=== PATIENT | male | born 1960 | race Hispanic/Latino ===

== ENCOUNTER 2020-02-23 | Emergency (ER) | payer SELFPAY ==
[2020-02-23 20:30] LABS: HEMATOCRIT 41.3 % (39.0-50.0); HEMOGLOBIN 13.9 g/dl (14.0-18.0); IMMATURE GRANULOCYTES 1.6 % (0.0-5.0); MEAN CELL VOLUME 79.3 fL CALC (80.0-100.0); MEAN CORPUSCULAR HGB 26.7 pG CALC (26.0-32.0); MEAN CORPUSCULAR HGB CONC 33.7 g/dL CAL (32.0-36.0); NEUT# 7.02 thou/uL (1.82-7.42); RED BLOOD COUNT 5.21 mill/uL (4.70-6.10); RED CELL DISTRI WIDTH 14.1 % (11.5-15.5)
[2020-02-23 20:49] LABS: ALBUMIN 3.8 g/dL (3.2-5.0); BILIRUBIN, TOTAL 1.4 mg/dL (0.0-1.4); POTASSIUM 3.1 mmol/l (3.5-5.1); TOTAL PROTEIN 7.8 g/dL (6.3-8.2)
[2020-02-23 20:57] LABS: CREATININE 8.7 mg/dL (0.7-1.3)
[2020-02-23 21:13] LABS: CPK 200 u/l (52-200)
[2020-02-23 21:33] LABS: MYOGLOBIN 509 ng/mL (0 - 121)
[2020-02-23 21:58] LABS: URINE BILIRUBIN - DIPSTICK NEGATIVE (NEGATIVE); URINE BLOOD DIPSTICK LARGE (NEGATIVE); URINE COLOR BROWN; URINE GLUCOSE - DIPSTICK NEGATIVE (NEGATIVE); URINE KETONE NEGATIVE (NEGATIVE); URINE LEUK ESTERASE TRACE (NEGATIVE); URINE NITRITE - DIPSTICK NEGATIVE (Negative); URINE PH 5.5 (4.5-8.0); URINE PROTEIN - DIPSTICK 30 mg/dL (NEG-TRACE); URINE SPECIFIC GRAVITY >=1.030; URINE UROBILINOGEN - DIPSTICK 0.2 E.U./dL (0.2)
[2020-02-23 22:06] LABS: URINE SQUAMOUS EPITHELIAL CELL FEW EPI/hpf (0-FEW)
[2020-02-23 22:07] LABS: URINE BACTERIA MANY hpf
--- NOTE | 2020-02-25 10:26 | NUR ---
FAXED URINE CX RESULTS TO [facility] FAX# [phone]
== END 2020-02-23 22:27 | disposition short-term general hospital (02) | DRG 394 ==
PROVIDERS: Family Medicine
PROC: 0T9B70Z Drainage of Bladder with Drainage Device, Via Natural or Artificial Opening (ICD-10-PCS; principal; 2020-02-23)
DX: T18.5XXA Foreign body in anus and rectum, initial encounter (principal); N17.9 Acute kidney failure, unspecified; R10.0 Acute abdomen; X58.XXXA Exposure to other specified factors, initial encounter; R82.71 Bacteriuria

== ENCOUNTER 2020-03-23 20:54 | Inpatient (IN) | payer SELFPAY ==
[~2020-03-23] VITALS: Ht 162.6 cm; Wt 54.0 kg
[2020-03-23 21:30] LABS: IMMATURE GRANULOCYTES 0.4 % (0.0-5.0); MEAN CORPUSCULAR HGB 27.6 pG CALC (26.0-32.0); MEAN CORPUSCULAR HGB CONC 31.8 g/dL CAL (32.0-36.0); NEUT# 6.9 thou/uL (1.82-7.42); RED BLOOD COUNT 2.72 mill/uL (4.70-6.10); RED CELL DISTRI WIDTH 15.3 % (11.5-15.5)
[2020-03-23 21:37] LABS: HEMATOCRIT 23.6 % (39.0-50.0); HEMOGLOBIN 7.5 g/dl (14.0-18.0); MEAN CELL VOLUME 86.8 fL CALC (80.0-100.0)
[2020-03-23 21:44] LABS: AMYLASE 124 u/l (30-110); BUN 30 mg/dL (9-20); CHLORIDE 97 mmol/l (95-108); LIPASE 224 u/l (23-300); SGOT/AST 24 u/l (17-59); SODIUM 133 mmol/l (137-146); TOTAL PROTEIN 7.4 g/dL (6.3-8.2)
[2020-03-23 21:47] LABS: ALBUMIN 2.9 g/dL (3.2-5.0); ALKALINE PHOSPHATASE 113 u/l (38-126); ANION GAP 10 (6-22 (CALC)); BILIRUBIN, TOTAL 0.5 mg/dL (0.0-1.4); BUN/CREATININE RATIO 30 (12-20 (CALC)); CARBON DIOXIDE 30 mmol/l (22-30); GFR > 60 ML/MIN (>=60 (CALC)); GFR FOR AFR.AMER. > 60 ML/MIN (>=60 (CALC)); POTASSIUM 4.1 mmol/l (3.5-5.1)
[2020-03-23] MEDS ORDERED: DOXAZOSIN1 MG PO (21:50)
[2020-03-23] MEDS ORDERED: LOPRESSOR25 M1 PO (21:51)
[2020-03-23] MEDS ORDERED: FINASTERIDE5 MG PO (21:51)
[2020-03-23] MEDS ORDERED: TAMSULOSIN HCL0.4 MG PO (21:52)
[2020-03-23 22:39] LABS: URINE BILIRUBIN - DIPSTICK NEGATIVE (NEGATIVE); URINE BLOOD DIPSTICK MODERATE (NEGATIVE); URINE COLOR YELLOW; URINE GLUCOSE - DIPSTICK NEGATIVE (NEGATIVE); URINE KETONE NEGATIVE (NEGATIVE); URINE NITRITE - DIPSTICK NEGATIVE (Negative); URINE PH 5.5 (4.5-8.0); URINE PROTEIN - DIPSTICK 30 mg/dL (NEG-TRACE); URINE SPECIFIC GRAVITY 1.015; URINE UROBILINOGEN - DIPSTICK 0.2 E.U./dL (0.2)
[2020-03-23 22:52] LABS: URINE LEUK ESTERASE LARGE (NEGATIVE)
[2020-03-23 22:53] LABS: URINE BACTERIA MODERATE hpf; URINE RBC TNTC RBC/hpf (0-5); URINE SQUAMOUS EPITHELIAL CELL FEW EPI/hpf (0-FEW); URINE WBC TNTC WBC/hpf (0-5)
[2020-03-23] MEDS ORDERED: BACTRIM DS1 TAB PO (23:15)
[2020-03-24 10:40] VITALS: BP 127/65
[2020-03-24 15:18] VITALS: BP 130/80
[2020-03-24 19:29] VITALS: BP 119/69
[2020-03-25 03:55] VITALS: BP 122/75
[2020-03-25 06:12] LABS: HEMATOCRIT 24.7 % (39.0-50.0); HEMOGLOBIN 7.7 g/dl (14.0-18.0); MEAN CELL VOLUME 87.3 fL CALC (80.0-100.0); MEAN CORPUSCULAR HGB 27.2 pG CALC (26.0-32.0); MEAN CORPUSCULAR HGB CONC 31.2 g/dL CAL (32.0-36.0); RED BLOOD COUNT 2.83 mill/uL (4.70-6.10); RED CELL DISTRI WIDTH 14.8 % (11.5-15.5)
[2020-03-25 06:35] LABS: ANION GAP 7 (6-22 (CALC)); BUN 22 mg/dL (9-20); BUN/CREATININE RATIO 21 (12-20 (CALC)); CARBON DIOXIDE 29 mmol/l (22-30); CHLORIDE 103 mmol/l (95-108); GFR > 60 ML/MIN (>=60 (CALC)); GFR FOR AFR.AMER. > 60 ML/MIN (>=60 (CALC)); SODIUM 135 mmol/l (137-146)
[2020-03-25 07:56] VITALS: BP 128/73
[2020-03-25 15:25] VITALS: BP 123/80
[2020-03-25 19:25] VITALS: BP 126/71
[2020-03-26 03:54] VITALS: BP 136/68
[2020-03-26 07:36] VITALS: BP 107/68
[2020-03-26 08:41] LABS: HEMATOCRIT 26.6 % (39.0-50.0); HEMOGLOBIN 8.1 g/dl (14.0-18.0); MEAN CELL VOLUME 87.2 fL CALC (80.0-100.0); MEAN CORPUSCULAR HGB 26.6 pG CALC (26.0-32.0); MEAN CORPUSCULAR HGB CONC 30.5 g/dL CAL (32.0-36.0); RED BLOOD COUNT 3.05 mill/uL (4.70-6.10); RED CELL DISTRI WIDTH 14.7 % (11.5-15.5)
[2020-03-26 08:56] LABS: ALBUMIN 2.4 g/dL (3.2-5.0); ALKALINE PHOSPHATASE 107 u/l (38-126); ANION GAP 7 (6-22 (CALC)); BILIRUBIN, TOTAL 0.4 mg/dL (0.0-1.4); BUN 22 mg/dL (9-20); BUN/CREATININE RATIO 17 (12-20 (CALC)); CARBON DIOXIDE 30 mmol/l (22-30); CHLORIDE 101 mmol/l (95-108); CREATININE 1.3 mg/dL (0.7-1.3); GFR 56 ML/MIN (>=60 (CALC)); GFR FOR AFR.AMER. > 60 ML/MIN (>=60 (CALC)); POTASSIUM 3.9 mmol/l (3.5-5.1); SGOT/AST 16 u/l (17-59); SODIUM 134 mmol/l (137-146); TOTAL PROTEIN 6.3 g/dL (6.3-8.2)
[2020-03-26 15:23] VITALS: BP 106/59
[2020-03-26 18:50] VITALS: BP 106/67
[2020-03-27 03:45] VITALS: BP 108/64
[2020-03-27 10:02] VITALS: BP 109/66
[2020-03-27 15:00] VITALS: BP 113/64
[2020-03-27 15:35] VITALS: BP 129/74
[2020-03-27 19:00] VITALS: BP 126/68
[2020-03-28 04:42] VITALS: BP 152/79
[2020-03-28 05:31] LABS: HEMATOCRIT 25.4 % (39.0-50.0); IMMATURE GRANULOCYTES 0.4 % (0.0-5.0); MEAN CELL VOLUME 86.7 fL CALC (80.0-100.0); MEAN CORPUSCULAR HGB 27.3 pG CALC (26.0-32.0); MEAN CORPUSCULAR HGB CONC 31.5 g/dL CAL (32.0-36.0); NEUT# 4.22 thou/uL (1.82-7.42); RED BLOOD COUNT 2.93 mill/uL (4.70-6.10); RED CELL DISTRI WIDTH 14.8 % (11.5-15.5)
[2020-03-28 05:56] LABS: ANION GAP 8 (6-22 (CALC)); BUN 22 mg/dL (9-20); BUN/CREATININE RATIO 18 (12-20 (CALC)); CARBON DIOXIDE 29 mmol/l (22-30); CHLORIDE 103 mmol/l (95-108); CREATININE 1.3 mg/dL (0.7-1.3); GFR 56 ML/MIN (>=60 (CALC)); GFR FOR AFR.AMER. > 60 ML/MIN (>=60 (CALC)); POTASSIUM 3.9 mmol/l (3.5-5.1); SODIUM 136 mmol/l (137-146)
[2020-03-28 08:36] VITALS: BP 145/79
[2020-03-28 15:11] VITALS: BP 117/69
[2020-03-28 19:03] VITALS: BP 113/67
[2020-03-29 05:11] VITALS: BP 149/80
[2020-03-29 05:11] LABS: HEMATOCRIT 27.6 % (39.0-50.0); HEMOGLOBIN 8.6 g/dl (14.0-18.0); MEAN CORPUSCULAR HGB 26.8 pG CALC (26.0-32.0); MEAN CORPUSCULAR HGB CONC 31.2 g/dL CAL (32.0-36.0); RED BLOOD COUNT 3.21 mill/uL (4.70-6.10); RED CELL DISTRI WIDTH 14.9 % (11.5-15.5)
[2020-03-29 05:37] LABS: ALBUMIN 2.5 g/dL (3.2-5.0); ALKALINE PHOSPHATASE 100 u/l (38-126); ANION GAP 9 (6-22 (CALC)); BUN 18 mg/dL (9-20); BUN/CREATININE RATIO 16 (12-20 (CALC)); CARBON DIOXIDE 28 mmol/l (22-30); CHLORIDE 101 mmol/l (95-108); CREATININE 1.1 mg/dL (0.7-1.3); GFR > 60 ML/MIN (>=60 (CALC)); GFR FOR AFR.AMER. > 60 ML/MIN (>=60 (CALC)); SGOT/AST 16 u/l (17-59); SODIUM 135 mmol/l (137-146); TOTAL PROTEIN 6.4 g/dL (6.3-8.2)
[2020-03-29 05:46] LABS: BILIRUBIN, TOTAL 0.6 mg/dL (0.0-1.4)
[2020-03-29 15:20] VITALS: BP 161/88
[2020-03-29 15:54] VITALS: BP 141/79
[2020-03-29 18:56] VITALS: BP 154/82
[2020-03-30 03:33] VITALS: BP 143/78
[2020-03-30 08:01] VITALS: BP 123/74
[2020-03-30 15:30] VITALS: BP 111/59
[2020-03-30 19:50] VITALS: BP 128/62
[2020-03-31 03:58] VITALS: BP 136/70
[2020-03-31 07:11] VITALS: BP 139/72
[2020-03-31 15:41] VITALS: BP 125/66
[2020-03-31 19:00] VITALS: BP 129/67
[2020-04-01 04:22] VITALS: BP 140/72
[2020-04-01 07:29] VITALS: BP 121/59
[2020-04-01 14:55] VITALS: BP 126/59
[2020-04-01 19:00] VITALS: BP 126/65
[2020-04-02 04:22] VITALS: BP 130/72
[2020-04-02 05:28] LABS: HEMATOCRIT 27.3 % (39.0-50.0); HEMOGLOBIN 8.6 g/dl (14.0-18.0); MEAN CELL VOLUME 87.8 fL CALC (80.0-100.0); MEAN CORPUSCULAR HGB 27.7 pG CALC (26.0-32.0); MEAN CORPUSCULAR HGB CONC 31.5 g/dL CAL (32.0-36.0); RED BLOOD COUNT 3.11 mill/uL (4.70-6.10); RED CELL DISTRI WIDTH 16.2 % (11.5-15.5)
[2020-04-02 05:37] LABS: ALBUMIN 2.6 g/dL (3.2-5.0); ALKALINE PHOSPHATASE 117 u/l (38-126); ANION GAP 11 (6-22 (CALC)); BILIRUBIN, TOTAL 0.4 mg/dL (0.0-1.4); BUN 30 mg/dL (9-20); BUN/CREATININE RATIO 25 (12-20 (CALC)); CARBON DIOXIDE 26 mmol/l (22-30); CHLORIDE 104 mmol/l (95-108); CREATININE 1.2 mg/dL (0.7-1.3); GFR > 60 ML/MIN (>=60 (CALC)); GFR FOR AFR.AMER. > 60 ML/MIN (>=60 (CALC)); SGOT/AST 25 u/l (17-59); SODIUM 136 mmol/l (137-146); TOTAL PROTEIN 6.2 g/dL (6.3-8.2)
[2020-04-02 07:18] VITALS: BP 120/70
[2020-04-02 15:05] VITALS: BP 121/70
[2020-04-02 19:05] VITALS: BP 128/74
[2020-04-02 19:23] LABS: CREATININE 1.5 mg/dL (0.7-1.3); POTASSIUM 4.3 mmol/l (3.5-5.1)
[2020-04-03 03:41] VITALS: BP 122/70
[2020-04-03 07:55] VITALS: BP 141/77
[2020-04-03 15:07] VITALS: BP 110/68
[2020-04-03 18:55] VITALS: BP 118/69
[2020-04-04 04:06] VITALS: BP 115/70
[2020-04-04 06:22] LABS: HEMATOCRIT 29.6 % (39.0-50.0); HEMOGLOBIN 9.4 g/dl (14.0-18.0); MEAN CELL VOLUME 87.6 fL CALC (80.0-100.0); MEAN CORPUSCULAR HGB 27.8 pG CALC (26.0-32.0); MEAN CORPUSCULAR HGB CONC 31.8 g/dL CAL (32.0-36.0); RED BLOOD COUNT 3.38 mill/uL (4.70-6.10); RED CELL DISTRI WIDTH 16.8 % (11.5-15.5)
[2020-04-04 07:05] LABS: ALBUMIN 2.6 g/dL (3.2-5.0); ALKALINE PHOSPHATASE 123 u/l (38-126); ANION GAP 12 (6-22 (CALC)); BILIRUBIN, TOTAL 0.3 mg/dL (0.0-1.4); BUN 31 mg/dL (9-20); BUN/CREATININE RATIO 25 (12-20 (CALC)); CARBON DIOXIDE 27 mmol/l (22-30); CHLORIDE 105 mmol/l (95-108); CREATININE 1.2 mg/dL (0.7-1.3); GFR > 60 ML/MIN (>=60 (CALC)); GFR FOR AFR.AMER. > 60 ML/MIN (>=60 (CALC)); POTASSIUM 4.1 mmol/l (3.5-5.1); SGOT/AST 15 u/l (17-59); SODIUM 140 mmol/l (137-146); TOTAL PROTEIN 6.1 g/dL (6.3-8.2)
[2020-04-04 08:30] VITALS: BP 93/63
[2020-04-04 15:36] VITALS: BP 124/73
[2020-04-04 19:48] VITALS: BP 116/70
[2020-04-05 03:28] VITALS: BP 112/64
[2020-04-05 07:12] VITALS: BP 120/72
[2020-04-05 11:26] VITALS: BP 127/69
[2020-04-05 15:53] VITALS: BP 104/56
[2020-04-05 21:39] VITALS: BP 123/71
[2020-04-06] VITALS (10 sets, daily range): BP systolic 100–131; BP diastolic 52–71
[2020-04-07 04:59] VITALS: BP 105/59
[2020-04-07 07:13] VITALS: BP 102/54
[2020-04-07 15:18] VITALS: BP 109/66
[2020-04-07 19:25] VITALS: BP 119/67
[2020-04-08 04:22] VITALS: BP 101/61
[2020-04-08 05:32] LABS: HEMATOCRIT 27.2 % (39.0-50.0); HEMOGLOBIN 8.6 g/dl (14.0-18.0); IMMATURE GRANULOCYTES 0.4 % (0.0-5.0); MEAN CELL VOLUME 87.7 fL CALC (80.0-100.0); MEAN CORPUSCULAR HGB 27.7 pG CALC (26.0-32.0); MEAN CORPUSCULAR HGB CONC 31.6 g/dL CAL (32.0-36.0); NEUT# 2.47 thou/uL (1.82-7.42); RED BLOOD COUNT 3.1 mill/uL (4.70-6.10)
[2020-04-08 06:05] LABS: ALBUMIN 2.6 g/dL (3.2-5.0); ALKALINE PHOSPHATASE 116 u/l (38-126); ANION GAP 11 (6-22 (CALC)); BILIRUBIN, TOTAL 0.3 mg/dL (0.0-1.4); BUN 27 mg/dL (9-20); BUN/CREATININE RATIO 29 (12-20 (CALC)); CARBON DIOXIDE 26 mmol/l (22-30); CHLORIDE 105 mmol/l (95-108); CREATININE 0.9 mg/dL (0.7-1.3); GFR > 60 ML/MIN (>=60 (CALC)); GFR FOR AFR.AMER. > 60 ML/MIN (>=60 (CALC)); SGOT/AST 14 u/l (17-59); SODIUM 137 mmol/l (137-146)
[2020-04-08 07:32] VITALS: BP 116/70
[2020-04-08 15:48] VITALS: BP 121/71
[2020-04-08 19:30] VITALS: BP 112/64
[2020-04-09 04:30] VITALS: BP 104/55
[2020-04-09 07:18] VITALS: BP 112/67
[2020-04-09 15:35] VITALS: BP 134/75
[2020-04-09 18:37] VITALS: BP 113/63
[2020-04-10 03:34] VITALS: BP 116/68
[2020-04-10 09:07] VITALS: BP 130/62
[2020-04-10 15:06] VITALS: BP 126/73
[2020-04-10 18:57] VITALS: BP 122/73
[2020-04-11 04:37] VITALS: BP 126/73
[2020-04-11 06:02] LABS: HEMATOCRIT 27.8 % (39.0-50.0); HEMOGLOBIN 8.8 g/dl (14.0-18.0); MEAN CELL VOLUME 86.3 fL CALC (80.0-100.0); MEAN CORPUSCULAR HGB 27.3 pG CALC (26.0-32.0); MEAN CORPUSCULAR HGB CONC 31.7 g/dL CAL (32.0-36.0); RED BLOOD COUNT 3.22 mill/uL (4.70-6.10)
[2020-04-11 06:09] LABS: ALBUMIN 2.5 g/dL (3.2-5.0); ALKALINE PHOSPHATASE 120 u/l (38-126); ANION GAP 8 (6-22 (CALC)); BILIRUBIN, TOTAL 0.2 mg/dL (0.0-1.4); BUN 28 mg/dL (9-20); BUN/CREATININE RATIO 23 (12-20 (CALC)); CARBON DIOXIDE 28 mmol/l (22-30); CHLORIDE 102 mmol/l (95-108); CREATININE 1.2 mg/dL (0.7-1.3); GFR > 60 ML/MIN (>=60 (CALC)); GFR FOR AFR.AMER. > 60 ML/MIN (>=60 (CALC)); POTASSIUM 4.2 mmol/l (3.5-5.1); SODIUM 134 mmol/l (137-146)
[2020-04-11 06:21] LABS: SGOT/AST 26 u/l (17-59)
[2020-04-11 08:00] VITALS: BP 126/75
[2020-04-11 15:45] VITALS: BP 117/66
[2020-04-11 18:59] VITALS: BP 112/65
[2020-04-12 03:47] VITALS: BP 119/66
[2020-04-12 08:20] VITALS: BP 117/63
[2020-04-12 15:29] VITALS: BP 142/85
[2020-04-12 19:30] VITALS: BP 118/67
[2020-04-13 04:03] VITALS: BP 134/71
[2020-04-13 05:27] LABS: HEMATOCRIT 29.1 % (39.0-50.0); HEMOGLOBIN 9.1 g/dl (14.0-18.0); MEAN CELL VOLUME 86.6 fL CALC (80.0-100.0); MEAN CORPUSCULAR HGB 27.1 pG CALC (26.0-32.0); MEAN CORPUSCULAR HGB CONC 31.3 g/dL CAL (32.0-36.0); RED BLOOD COUNT 3.36 mill/uL (4.70-6.10); RED CELL DISTRI WIDTH 16.6 % (11.5-15.5)
[2020-04-13 05:39] LABS: ALBUMIN 2.6 g/dL (3.2-5.0); ALKALINE PHOSPHATASE 118 u/l (38-126); ANION GAP 10 (6-22 (CALC)); BUN 24 mg/dL (9-20); BUN/CREATININE RATIO 22 (12-20 (CALC)); CARBON DIOXIDE 26 mmol/l (22-30); CHLORIDE 102 mmol/l (95-108); CREATININE 1.1 mg/dL (0.7-1.3); GFR > 60 ML/MIN (>=60 (CALC)); GFR FOR AFR.AMER. > 60 ML/MIN (>=60 (CALC)); POTASSIUM 3.9 mmol/l (3.5-5.1); SGOT/AST 28 u/l (17-59); SODIUM 134 mmol/l (137-146); TOTAL PROTEIN 6.1 g/dL (6.3-8.2)
[2020-04-13 05:47] LABS: BILIRUBIN, TOTAL 0.6 mg/dL (0.0-1.4)
[2020-04-13 08:34] VITALS: BP 130/70
[2020-04-13 15:06] VITALS: BP 113/71
[2020-04-13 19:05] VITALS: BP 129/73
[2020-04-14 03:55] VITALS: BP 135/70
[2020-04-14 07:59] VITALS: BP 145/77
[2020-04-14 15:13] VITALS: BP 145/79
[2020-04-14 19:25] VITALS: BP 109/62
[2020-04-15 04:15] VITALS: BP 118/65
[2020-04-15 08:59] VITALS: BP 131/69
[2020-04-15 15:01] VITALS: BP 115/68
[2020-04-15 19:25] VITALS: BP 116/61
[2020-04-15 20:02] VITALS: BP 112/58
[2020-04-16 00:18] VITALS: BP 106/53
[2020-04-16 04:42] VITALS: BP 133/66
[2020-04-16 08:00] VITALS: BP 117/67
[2020-04-16 14:55] VITALS: BP 127/65
[2020-04-16 19:19] VITALS: BP 143/80
[2020-04-16 20:13] VITALS: BP 126/74
[2020-04-17 00:41] VITALS: BP 112/64
[2020-04-17 05:14] LABS: HEMATOCRIT 29.4 % (39.0-50.0); HEMOGLOBIN 9.3 g/dl (14.0-18.0); IMMATURE GRANULOCYTES 0.2 % (0.0-5.0); MEAN CELL VOLUME 86.7 fL CALC (80.0-100.0); MEAN CORPUSCULAR HGB 27.4 pG CALC (26.0-32.0); MEAN CORPUSCULAR HGB CONC 31.6 g/dL CAL (32.0-36.0); NEUT# 4.53 thou/uL (1.82-7.42); RED BLOOD COUNT 3.39 mill/uL (4.70-6.10); RED CELL DISTRI WIDTH 16.7 % (11.5-15.5)
[2020-04-17 05:17] VITALS: BP 126/73
[2020-04-17 05:28] LABS: ALBUMIN 2.7 g/dL (3.2-5.0); ALKALINE PHOSPHATASE 133 u/l (38-126); ANION GAP 11 (6-22 (CALC)); BILIRUBIN, TOTAL 0.5 mg/dL (0.0-1.4); BUN 26 mg/dL (9-20); BUN/CREATININE RATIO 23 (12-20 (CALC)); CARBON DIOXIDE 27 mmol/l (22-30); CHLORIDE 103 mmol/l (95-108); CREATININE 1.1 mg/dL (0.7-1.3); GFR > 60 ML/MIN (>=60 (CALC)); GFR FOR AFR.AMER. > 60 ML/MIN (>=60 (CALC)); POTASSIUM 3.9 mmol/l (3.5-5.1); SGOT/AST 28 u/l (17-59); SODIUM 137 mmol/l (137-146); TOTAL PROTEIN 6.3 g/dL (6.3-8.2)
[2020-04-17 09:30] VITALS: BP 129/70
[2020-04-17 15:44] VITALS: BP 144/73
[2020-04-17 18:35] VITALS: BP 117/61
[2020-04-18 04:00] VITALS: BP 132/73
[2020-04-18 09:25] VITALS: BP 131/73
[2020-04-18 15:18] VITALS: BP 136/74
[2020-04-18 18:50] VITALS: BP 126/69
[2020-04-19 03:30] VITALS: BP 130/71
[2020-04-19 10:39] VITALS: BP 147/75
[2020-04-19 15:26] VITALS: BP 137/70
[2020-04-19 18:26] VITALS: BP 138/72
[2020-04-20 04:30] VITALS: BP 123/65
[2020-04-20 04:31] VITALS: BP 136/72
[2020-04-20 07:38] VITALS: BP 134/82
[2020-04-20 15:29] VITALS: BP 126/68
[2020-04-20 19:08] VITALS: BP 113/74
[2020-04-21] VITALS (11 sets, daily range): BP systolic 104–157; BP diastolic 62–79
[2020-04-21 04:48] LABS: HEMATOCRIT 31.3 % (39.0-50.0); HEMOGLOBIN 9.7 g/dl (14.0-18.0); IMMATURE GRANULOCYTES 0.2 % (0.0-5.0); MEAN CELL VOLUME 86.7 fL CALC (80.0-100.0); MEAN CORPUSCULAR HGB 26.9 pG CALC (26.0-32.0); NEUT# 2.31 thou/uL (1.82-7.42); RED BLOOD COUNT 3.61 mill/uL (4.70-6.10); RED CELL DISTRI WIDTH 16.4 % (11.5-15.5)
[2020-04-21 05:14] LABS: ANION GAP 8 (6-22 (CALC)); BUN 23 mg/dL (9-20); BUN/CREATININE RATIO 21 (12-20 (CALC)); CARBON DIOXIDE 27 mmol/l (22-30); CHLORIDE 103 mmol/l (95-108); CREATININE 1.1 mg/dL (0.7-1.3); GFR > 60 ML/MIN (>=60 (CALC)); GFR FOR AFR.AMER. > 60 ML/MIN (>=60 (CALC)); POTASSIUM 3.9 mmol/l (3.5-5.1); SODIUM 135 mmol/l (137-146)
[2020-04-22 04:00] VITALS: BP 126/70
[2020-04-22 07:38] VITALS: BP 151/72
[2020-04-22 15:32] VITALS: BP 146/81
[2020-04-22 19:00] VITALS: BP 136/80
[2020-04-23 06:09] VITALS: BP 124/79
[2020-04-23 06:33] LABS: HEMATOCRIT 32.5 % (39.0-50.0); HEMOGLOBIN 10.3 g/dl (14.0-18.0); IMMATURE GRANULOCYTES 0.4 % (0.0-5.0); MEAN CELL VOLUME 85.5 fL CALC (80.0-100.0); MEAN CORPUSCULAR HGB 27.1 pG CALC (26.0-32.0); MEAN CORPUSCULAR HGB CONC 31.7 g/dL CAL (32.0-36.0); NEUT# 8.63 thou/uL (1.82-7.42); RED BLOOD COUNT 3.8 mill/uL (4.70-6.10); RED CELL DISTRI WIDTH 16.6 % (11.5-15.5)
[2020-04-23 06:42] LABS: ANION GAP 7 (6-22 (CALC)); BUN 25 mg/dL (9-20); BUN/CREATININE RATIO 28 (12-20 (CALC)); CARBON DIOXIDE 26 mmol/l (22-30); CHLORIDE 105 mmol/l (95-108); CREATININE 0.9 mg/dL (0.7-1.3); GFR > 60 ML/MIN (>=60 (CALC)); GFR FOR AFR.AMER. > 60 ML/MIN (>=60 (CALC)); POTASSIUM 3.9 mmol/l (3.5-5.1); SODIUM 134 mmol/l (137-146)
[2020-04-23 07:07] VITALS: BP 126/74
[2020-04-23 15:33] VITALS: BP 120/64
[2020-04-23 18:33] VITALS: BP 122/70
[2020-04-24 03:20] VITALS: BP 138/76
[2020-04-24 08:00] VITALS: BP 118/84
[2020-04-24 15:17] VITALS: BP 127/68
[2020-04-24 19:31] VITALS: BP 119/70
[2020-04-25 00:05] VITALS: BP 121/72
[2020-04-25 03:14] VITALS: BP 106/64
[2020-04-25 10:15] VITALS: BP 111/72
[2020-04-25 15:00] VITALS: BP 105/66
[2020-04-25 19:35] VITALS: BP 127/62
[2020-04-26 04:36] VITALS: BP 135/70
[2020-04-26 08:26] VITALS: BP 140/70
[2020-04-26 15:34] VITALS: BP 129/77
[2020-04-26 19:23] VITALS: BP 117/69
[2020-04-27] VITALS: BP 122/67
[2020-04-27 04:00] VITALS: BP 112/66
[2020-04-27 06:47] VITALS: BP 119/67
[2020-04-27 16:06] VITALS: BP 115/60
[2020-04-27 19:40] VITALS: BP 127/70
[2020-04-28 03:50] VITALS: BP 110/71
[2020-04-28 06:53] VITALS: BP 125/71
[2020-04-28 15:33] VITALS: BP 121/75
[2020-04-28 19:25] VITALS: BP 121/66
[2020-04-29 03:50] VITALS: BP 120/75
[2020-04-29 08:45] VITALS: BP 106/66
[2020-04-29 15:00] VITALS: BP 113/69
[2020-04-29 19:08] VITALS: BP 106/64
[2020-04-30 03:56] VITALS: BP 113/72
[2020-04-30 16:30] VITALS: BP 123/67
[2020-04-30 18:58] VITALS: BP 115/78
[2020-04-30 22:30] LABS: URINE BILIRUBIN - DIPSTICK NEGATIVE (NEGATIVE); URINE BLOOD DIPSTICK LARGE (NEGATIVE); URINE COLOR YELLOW; URINE GLUCOSE - DIPSTICK NEGATIVE (NEGATIVE); URINE KETONE NEGATIVE (NEGATIVE); URINE NITRITE - DIPSTICK NEGATIVE (Negative); URINE PH 5.5 (4.5-8.0); URINE PROTEIN - DIPSTICK 30 mg/dL (NEG-TRACE); URINE SPECIFIC GRAVITY >=1.030; URINE UROBILINOGEN - DIPSTICK 0.2 E.U./dL (0.2)
[2020-04-30 22:31] LABS: URINE LEUK ESTERASE MODERATE (NEGATIVE)
[2020-04-30 22:39] LABS: URINE BACTERIA MODERATE hpf; URINE RBC TNTC RBC/hpf (0-5); URINE SQUAMOUS EPITHELIAL CELL FEW EPI/hpf (0-FEW); URINE WBC TNTC WBC/hpf (0-5)
[2020-05-01 00:18] VITALS: BP 112/67
[2020-05-01 04:02] VITALS: BP 115/71
[2020-05-01 08:56] VITALS: BP 138/51
[2020-05-01 16:32] VITALS: BP 126/74
[2020-05-01 19:05] VITALS: BP 134/77
[2020-05-02 03:58] VITALS: BP 106/67
[2020-05-02 07:18] VITALS: BP 121/71
[2020-05-02 12:02] VITALS: BP 122/69
[2020-05-02 15:00] VITALS: BP 136/78
[2020-05-02 19:45] VITALS: BP 123/68
[2020-05-03] VITALS (9 sets, daily range): BP systolic 91–148; BP diastolic 58–75
[2020-05-04] VITALS (13 sets, daily range): BP systolic 87–118; BP diastolic 52–71
[2020-05-04 05:40] LABS: HEMATOCRIT 32.1 % (39.0-50.0); HEMOGLOBIN 10.2 g/dl (14.0-18.0); IMMATURE GRANULOCYTES 0.3 % (0.0-5.0); MEAN CELL VOLUME 86.3 fL CALC (80.0-100.0); MEAN CORPUSCULAR HGB 27.4 pG CALC (26.0-32.0); MEAN CORPUSCULAR HGB CONC 31.8 g/dL CAL (32.0-36.0); NEUT# 5.48 thou/uL (1.82-7.42); RED BLOOD COUNT 3.72 mill/uL (4.70-6.10); RED CELL DISTRI WIDTH 15.6 % (11.5-15.5)
[2020-05-04 06:06] LABS: ALKALINE PHOSPHATASE 81 u/l (38-126); ANION GAP 9 (6-22 (CALC)); BILIRUBIN, TOTAL 0.4 mg/dL (0.0-1.4); BUN 15 mg/dL (9-20); BUN/CREATININE RATIO 14 (12-20 (CALC)); CARBON DIOXIDE 24 mmol/l (22-30); CHLORIDE 104 mmol/l (95-108); CREATININE 1.1 mg/dL (0.7-1.3); GFR > 60 ML/MIN (>=60 (CALC)); GFR FOR AFR.AMER. > 60 ML/MIN (>=60 (CALC)); POTASSIUM 4.4 mmol/l (3.5-5.1); SGOT/AST 21 u/l (17-59); SODIUM 133 mmol/l (137-146); TOTAL PROTEIN 5.1 g/dL (6.3-8.2)
[2020-05-04 06:11] LABS: ALBUMIN 2.1 g/dL (3.2-5.0)
[2020-05-05] VITALS (11 sets, daily range): BP systolic 32–155; BP diastolic 60–84
[2020-05-06] VITALS (11 sets, daily range): BP systolic 115–170; BP diastolic 64–87
[2020-05-06 05:34] LABS: HEMATOCRIT 27.5 % (39.0-50.0); HEMOGLOBIN 8.6 g/dl (14.0-18.0); MEAN CELL VOLUME 85.1 fL CALC (80.0-100.0); MEAN CORPUSCULAR HGB 26.6 pG CALC (26.0-32.0); MEAN CORPUSCULAR HGB CONC 31.3 g/dL CAL (32.0-36.0); RED BLOOD COUNT 3.23 mill/uL (4.70-6.10); RED CELL DISTRI WIDTH 15.2 % (11.5-15.5)
[2020-05-06 05:54] LABS: ANION GAP 6 (6-22 (CALC)); BUN 7 mg/dL (9-20); BUN/CREATININE RATIO 8 (12-20 (CALC)); CARBON DIOXIDE 26 mmol/l (22-30); CHLORIDE 104 mmol/l (95-108); CREATININE 0.9 mg/dL (0.7-1.3); GFR > 60 ML/MIN (>=60 (CALC)); GFR FOR AFR.AMER. > 60 ML/MIN (>=60 (CALC)); SODIUM 133 mmol/l (137-146)
[2020-05-06 05:57] LABS: POTASSIUM 3.3 mmol/l (3.5-5.1)
[2020-05-06 12:17] LABS: HEMOGLOBIN 8.8 g/dl (14.0-18.0); IMMATURE GRANULOCYTES 0.4 % (0.0-5.0); MEAN CELL VOLUME 87.5 fL CALC (80.0-100.0); MEAN CORPUSCULAR HGB 27.5 pG CALC (26.0-32.0); MEAN CORPUSCULAR HGB CONC 31.4 g/dL CAL (32.0-36.0); NEUT# 4.31 thou/uL (1.82-7.42); RED BLOOD COUNT 3.2 mill/uL (4.70-6.10); RED CELL DISTRI WIDTH 15.5 % (11.5-15.5)
[2020-05-06 12:22] LABS: MAGNESIUM 1.7 mg/dL (1.6-2.3)
[2020-05-06 12:23] LABS: ALBUMIN 2.3 g/dL (3.2-5.0); ALKALINE PHOSPHATASE 92 u/l (38-126); ANION GAP 10 (6-22 (CALC)); BILIRUBIN, TOTAL 0.4 mg/dL (0.0-1.4); BUN 7 mg/dL (9-20); BUN/CREATININE RATIO 8 (12-20 (CALC)); CALCULATED LDLCHOLESTEROL 64 mg/dL (62-129 (CALC)); CARBON DIOXIDE 25 mmol/l (22-30); CHLORIDE 104 mmol/l (95-108); CHOLESTEROL HDL RATIO 6.4 (<4.4 (CALC)); CREATININE 0.8 mg/dL (0.7-1.3); GFR > 60 ML/MIN (>=60 (CALC)); GFR FOR AFR.AMER. > 60 ML/MIN (>=60 (CALC)); HDL CHOLESTEROL 16 mg/dL (>=40); POTASSIUM 3.4 mmol/l (3.5-5.1); SGOT/AST 20 u/l (17-59); SODIUM 135 mmol/l (137-146); TOTAL CHOLESTEROL 104 mg/dl (0-199); TOTAL PROTEIN 5.5 g/dL (6.3-8.2); TOTAL TRIGLYCERIDES 118 mg/dl (30-149); VLDL CHOLESTROL 24 mg/dl (4-45 (CALC))
[2020-05-07] VITALS (7 sets, daily range): BP systolic 124–172; BP diastolic 68–84
[2020-05-07 05:26] LABS: ANION GAP 10 (6-22 (CALC)); BUN 15 mg/dL (9-20); BUN/CREATININE RATIO 19 (12-20 (CALC)); CARBON DIOXIDE 28 mmol/l (22-30); CHLORIDE 100 mmol/l (95-108); CREATININE 0.8 mg/dL (0.7-1.3); GFR > 60 ML/MIN (>=60 (CALC)); GFR FOR AFR.AMER. > 60 ML/MIN (>=60 (CALC)); MAGNESIUM 1.8 mg/dL (1.6-2.3); POTASSIUM 3.9 mmol/l (3.5-5.1); SODIUM 134 mmol/l (137-146)
[2020-05-08 03:40] VITALS: BP 147/76
[2020-05-08 08:51] VITALS: BP 163/77
[2020-05-08 15:04] VITALS: BP 131/74
[2020-05-08 18:56] VITALS: BP 122/73
[2020-05-09 04:00] VITALS: BP 138/85
[2020-05-09 07:58] VITALS: BP 131/74
[2020-05-09 15:27] VITALS: BP 147/81
[2020-05-09 19:09] VITALS: BP 138/74
[2020-05-10 03:56] VITALS: BP 141/78
[2020-05-10 05:09] LABS: HEMATOCRIT 29.7 % (39.0-50.0); HEMOGLOBIN 9.1 g/dl (14.0-18.0); MEAN CELL VOLUME 86.8 fL CALC (80.0-100.0); MEAN CORPUSCULAR HGB 26.6 pG CALC (26.0-32.0); MEAN CORPUSCULAR HGB CONC 30.6 g/dL CAL (32.0-36.0); RED BLOOD COUNT 3.42 mill/uL (4.70-6.10); RED CELL DISTRI WIDTH 14.7 % (11.5-15.5)
[2020-05-10 05:31] LABS: ALBUMIN 2.7 g/dL (3.2-5.0); ALKALINE PHOSPHATASE 135 u/l (38-126); ANION GAP 9 (6-22 (CALC)); BILIRUBIN, TOTAL 0.4 mg/dL (0.0-1.4); BUN 6 mg/dL (9-20); BUN/CREATININE RATIO 7 (12-20 (CALC)); CARBON DIOXIDE 29 mmol/l (22-30); CHLORIDE 101 mmol/l (95-108); CREATININE 0.9 mg/dL (0.7-1.3); GFR > 60 ML/MIN (>=60 (CALC)); GFR FOR AFR.AMER. > 60 ML/MIN (>=60 (CALC)); SGOT/AST 28 u/l (17-59); SODIUM 134 mmol/l (137-146); TOTAL PROTEIN 6.3 g/dL (6.3-8.2)
[2020-05-10 08:29] VITALS: BP 141/84
[2020-05-10 15:22] VITALS: BP 138/75
[2020-05-10 19:05] VITALS: BP 139/72
[2020-05-11 03:45] VITALS: BP 120/69
[2020-05-11 09:36] VITALS: BP 149/72
[2020-05-11 17:42] VITALS: BP 137/76
[2020-05-11 19:20] VITALS: BP 135/74
[2020-05-12 03:25] VITALS: BP 128/77
[2020-05-12 07:44] VITALS: BP 145/88
[2020-05-12 16:40] VITALS: BP 140/72
[2020-05-12 19:10] VITALS: BP 136/77
[2020-05-13 04:00] VITALS: BP 140/83
[2020-05-13 07:38] VITALS: BP 159/79
[2020-05-13 15:38] VITALS: BP 147/82
[2020-05-13 18:58] VITALS: BP 119/72
[2020-05-14 04:20] VITALS: BP 136/77
[2020-05-14 07:44] VITALS: BP 126/62
[2020-05-14 15:48] VITALS: BP 143/81
[2020-05-14 19:26] VITALS: BP 122/64
[2020-05-15 03:00] VITALS: BP 131/74
[2020-05-15 09:00] VITALS: BP 149/79
[2020-05-15 15:00] VITALS: BP 121/72
[2020-05-15 19:00] VITALS: BP 131/79
[2020-05-16 03:52] VITALS: BP 129/74
[2020-05-16 08:30] VITALS: BP 130/75
[2020-05-16 15:34] VITALS: BP 124/64
[2020-05-16 19:30] VITALS: BP 134/69
[2020-05-17 03:45] VITALS: BP 114/62
[2020-05-17 08:00] VITALS: BP 122/68
[2020-05-17 16:13] VITALS: BP 127/60
[2020-05-17 19:30] VITALS: BP 130/66
[2020-05-18 04:00] VITALS: BP 137/75
[2020-05-18 05:05] LABS: HEMATOCRIT 28.2 % (39.0-50.0); HEMOGLOBIN 8.7 g/dl (14.0-18.0); MEAN CELL VOLUME 85.7 fL CALC (80.0-100.0); MEAN CORPUSCULAR HGB 26.4 pG CALC (26.0-32.0); MEAN CORPUSCULAR HGB CONC 30.9 g/dL CAL (32.0-36.0); RED BLOOD COUNT 3.29 mill/uL (4.70-6.10); RED CELL DISTRI WIDTH 14.6 % (11.5-15.5)
[2020-05-18 05:14] LABS: ALBUMIN 2.8 g/dL (3.2-5.0); ALKALINE PHOSPHATASE 131 u/l (38-126); ANION GAP 9 (6-22 (CALC)); BILIRUBIN, TOTAL 0.3 mg/dL (0.0-1.4); BUN 22 mg/dL (9-20); BUN/CREATININE RATIO 27 (12-20 (CALC)); CARBON DIOXIDE 25 mmol/l (22-30); CHLORIDE 106 mmol/l (95-108); CREATININE 0.8 mg/dL (0.7-1.3); GFR > 60 ML/MIN (>=60 (CALC)); GFR FOR AFR.AMER. > 60 ML/MIN (>=60 (CALC)); POTASSIUM 4.1 mmol/l (3.5-5.1); SGOT/AST 30 u/l (17-59); SODIUM 136 mmol/l (137-146); TOTAL PROTEIN 6.5 g/dL (6.3-8.2)
[2020-05-18 11:08] VITALS: BP 137/74
[2020-05-18 17:45] VITALS: BP 130/71
[2020-05-18 19:01] VITALS: BP 120/71
[2020-05-19 04:25] VITALS: BP 125/71
[2020-05-19 07:45] VITALS: BP 124/71
[2020-05-19 17:07] VITALS: BP 136/70
[2020-05-20 03:47] VITALS: BP 123/66
[2020-05-20 07:20] VITALS: BP 126/78
[2020-05-20 15:00] VITALS: BP 122/67
[2020-05-20 19:04] VITALS: BP 136/78
[2020-05-21 03:45] VITALS: BP 132/70
[2020-05-21 06:57] VITALS: BP 120/68
[2020-05-21 15:00] VITALS: BP 118/67
[2020-05-21 18:57] VITALS: BP 102/60
[2020-05-22 04:22] VITALS: BP 110/51
[2020-05-22 08:02] VITALS: BP 126/74
[2020-05-22 11:53] VITALS: BP 135/67
[2020-05-22 16:17] VITALS: BP 123/61
[2020-05-22 19:00] VITALS: BP 110/67
[2020-05-23 04:30] VITALS: BP 108/61
[2020-05-23 08:16] VITALS: BP 120/90
[2020-05-23 15:51] VITALS: BP 124/69
[2020-05-23 18:45] VITALS: BP 135/74
[2020-05-24 04:23] VITALS: BP 116/78
[2020-05-24 09:16] VITALS: BP 102/72
[2020-05-24 15:00] VITALS: BP 129/65
[2020-05-24 16:22] LABS: URINE BILIRUBIN - DIPSTICK NEGATIVE (NEGATIVE); URINE BLOOD DIPSTICK LARGE (NEGATIVE); URINE COLOR YELLOW; URINE GLUCOSE - DIPSTICK NEGATIVE (NEGATIVE); URINE KETONE NEGATIVE (NEGATIVE); URINE NITRITE - DIPSTICK NEGATIVE (Negative); URINE PROTEIN - DIPSTICK 100 mg/dL (NEG-TRACE); URINE SPECIFIC GRAVITY >=1.030; URINE UROBILINOGEN - DIPSTICK 0.2 E.U./dL (0.2)
[2020-05-24 16:37] LABS: URINE LEUK ESTERASE SMALL (NEGATIVE)
[2020-05-24 16:39] LABS: URINE WBC 50-100 WBC/hpf (0-5)
[2020-05-24 18:40] VITALS: BP 114/74
[2020-05-25 04:05] VITALS: BP 123/67
[2020-05-25 05:19] LABS: HEMATOCRIT 31.2 % (39.0-50.0); HEMOGLOBIN 9.6 g/dl (14.0-18.0); MEAN CELL VOLUME 85.7 fL CALC (80.0-100.0); MEAN CORPUSCULAR HGB 26.4 pG CALC (26.0-32.0); MEAN CORPUSCULAR HGB CONC 30.8 g/dL CAL (32.0-36.0); RED BLOOD COUNT 3.64 mill/uL (4.70-6.10); RED CELL DISTRI WIDTH 14.6 % (11.5-15.5)
[2020-05-25 05:34] LABS: ALBUMIN 2.7 g/dL (3.2-5.0); ALKALINE PHOSPHATASE 138 u/l (38-126); ANION GAP 10 (6-22 (CALC)); BILIRUBIN, TOTAL 0.2 mg/dL (0.0-1.4); BUN 29 mg/dL (9-20); BUN/CREATININE RATIO 35 (12-20 (CALC)); CARBON DIOXIDE 24 mmol/l (22-30); CHLORIDE 107 mmol/l (95-108); CREATININE 0.8 mg/dL (0.7-1.3); GFR > 60 ML/MIN (>=60 (CALC)); GFR FOR AFR.AMER. > 60 ML/MIN (>=60 (CALC)); SGOT/AST 20 u/l (17-59); SODIUM 137 mmol/l (137-146); TOTAL PROTEIN 6.5 g/dL (6.3-8.2)
[2020-05-25 07:47] VITALS: BP 110/68
[2020-05-25 15:00] VITALS: BP 119/69
[2020-05-25 18:45] VITALS: BP 140/81
[2020-05-26 03:40] VITALS: BP 115/67
[2020-05-26 07:18] VITALS: BP 127/70
[2020-05-26 15:11] VITALS: BP 116/65
[2020-05-26 18:52] VITALS: BP 132/77
[2020-05-27 03:31] VITALS: BP 113/64
[2020-05-27 07:15] VITALS: BP 119/65
[2020-05-27 16:18] VITALS: BP 120/72
[2020-05-27 18:49] VITALS: BP 123/69
[2020-05-28 04:23] VITALS: BP 115/66
[2020-05-28 07:32] VITALS: BP 122/68
[2020-05-28 19:00] VITALS: BP 119/70
[2020-05-29 04:16] VITALS: BP 107/66
[2020-05-29 08:10] VITALS: BP 108/67
[2020-05-29 15:00] VITALS: BP 146/86
[2020-05-29 18:50] VITALS: BP 118/66
[2020-05-30 04:10] VITALS: BP 106/60
[2020-05-30 08:12] VITALS: BP 113/71
[2020-05-30 15:00] VITALS: BP 112/65
[2020-05-30 18:50] VITALS: BP 117/65
[2020-05-31 04:00] VITALS: BP 121/65
[2020-05-31 08:09] VITALS: BP 119/67
[2020-05-31 17:52] VITALS: BP 122/57
[2020-05-31 19:24] VITALS: BP 121/74
[2020-06-01 04:19] VITALS: BP 109/68
[2020-06-01 09:58] VITALS: BP 110/60
[2020-06-01 15:56] VITALS: BP 106/62
[2020-06-01 19:28] VITALS: BP 107/68
[2020-06-02 04:37] VITALS: BP 120/69
[2020-06-02 08:30] VITALS: BP 111/56
[2020-06-02 15:00] VITALS: BP 112/60
[2020-06-02 19:05] VITALS: BP 140/72
[2020-06-03 03:58] VITALS: BP 107/59
[2020-06-03 07:38] VITALS: BP 114/70
[2020-06-03 15:00] VITALS: BP 125/68
[2020-06-03 18:46] VITALS: BP 122/64
[2020-06-04 03:38] VITALS: BP 120/69
[2020-06-04 05:37] LABS: HEMATOCRIT 32.6 % (39.0-50.0); IMMATURE GRANULOCYTES 0.2 % (0.0-5.0); MEAN CELL VOLUME 84.7 fL CALC (80.0-100.0); MEAN CORPUSCULAR HGB CONC 30.7 g/dL CAL (32.0-36.0); NEUT# 2.38 thou/uL (1.82-7.42); RED BLOOD COUNT 3.85 mill/uL (4.70-6.10); RED CELL DISTRI WIDTH 14.6 % (11.5-15.5)
[2020-06-04 05:47] LABS: ALBUMIN 2.7 g/dL (3.2-5.0); ALKALINE PHOSPHATASE 110 u/l (38-126); ANION GAP 9 (6-22 (CALC)); BILIRUBIN, TOTAL 0.2 mg/dL (0.0-1.4); BUN 29 mg/dL (9-20); BUN/CREATININE RATIO 30 (12-20 (CALC)); CARBON DIOXIDE 25 mmol/l (22-30); CHLORIDE 106 mmol/l (95-108); GFR > 60 ML/MIN (>=60 (CALC)); GFR FOR AFR.AMER. > 60 ML/MIN (>=60 (CALC)); POTASSIUM 3.8 mmol/l (3.5-5.1); SGOT/AST 19 u/l (17-59); SODIUM 136 mmol/l (137-146); TOTAL PROTEIN 6.3 g/dL (6.3-8.2)
[2020-06-04 07:29] VITALS: BP 107/59
[2020-06-04 10:30] VITALS: BP 140/74
[2020-06-04 15:00] VITALS: BP 116/66
[2020-06-04 18:30] VITALS: BP 122/62
[2020-06-05 03:50] VITALS: BP 111/57
[2020-06-05 07:45] VITALS: BP 125/61
[2020-06-05 08:36] VITALS: BP 125/61
[2020-06-05] MEDS ORDERED: TRAMADOL HCL50 MG PO (12:06)
[2020-06-05] MEDS ORDERED: SYNTHROID25 MCG PO (12:06)
[2020-06-05] MEDS ORDERED: PANTOPRAZOLE SO40 M1 PO (12:06)
[2020-06-05] MEDS ORDERED: DICYCLOMINE HCL10 MG PO (12:06)
[2020-06-05] MEDS ORDERED: LOPRESSOR25 M1 PO (12:25)
[2020-06-05] MEDS ORDERED: FINASTERIDE5 MG PO (12:25)
[2020-06-05] MEDS ORDERED: TAMSULOSIN HCL0.4 MG PO (12:25)
== END 2020-06-05 14:50 | disposition home or self-care (01) | DRG 653 ==
LOC: ED 20:54 → ED-I 21:16 → ED 03-24 09:20 → MS2 03-24 09:21 → ED-I 03-24 09:21 → MS2 03-24 09:57 → ICU 05-03 12:05 → MS2 05-07 13:23
PROVIDERS: Family Medicine; Internal Medicine; Nurse Practitioner Family; Urology; ADMIT Internal Medicine; ATTEND Internal Medicine
PROC: 0DJD8ZZ Inspection of Lower Intestinal Tract, Via Natural or Artificial Opening Endoscopic (ICD-10-PCS; principal; 2020-03-31)
PROC: 0T9B70Z Drainage of Bladder with Drainage Device, Via Natural or Artificial Opening (ICD-10-PCS; 2020-04-04)
PROC: 0DJD8ZZ Inspection of Lower Intestinal Tract, Via Natural or Artificial Opening Endoscopic (ICD-10-PCS; 2020-04-06)
PROC: BT00ZZZ Plain Radiography of Bladder (ICD-10-PCS; 2020-04-10)
PROC: 0VB08ZZ Excision of Prostate, Via Natural or Artificial Opening Endoscopic (ICD-10-PCS; 2020-04-21)
PROC: 0TBB8ZZ Excision of Bladder, Via Natural or Artificial Opening Endoscopic (ICD-10-PCS; 2020-04-21)
PROC: 0DJD8ZZ Inspection of Lower Intestinal Tract, Via Natural or Artificial Opening Endoscopic (ICD-10-PCS; 2020-04-26)
PROC: 0DN80ZZ Release Small Intestine, Open Approach (ICD-10-PCS; 2020-05-03)
PROC: 0TBB0ZZ Excision of Bladder, Open Approach (ICD-10-PCS; 2020-05-03)
PROC: 0TQB0ZZ Repair Bladder, Open Approach (ICD-10-PCS; 2020-05-03)
PROC: BT00ZZZ Plain Radiography of Bladder (ICD-10-PCS; 2020-05-15)
PROC: BT00ZZZ Plain Radiography of Bladder (ICD-10-PCS; 2020-05-31)
DX: N32.89 Other specified disorders of bladder (principal); J18.9 Pneumonia, unspecified organism; T83.518A Infection and inflammatory reaction due to other urinary catheter, initial encounter; N39.0 Urinary tract infection, site not specified; K56.7 Ileus, unspecified; K66.0 Peritoneal adhesions (postprocedural) (postinfection); I10 Essential (primary) hypertension; D64.9 Anemia, unspecified; R62.7 Adult failure to thrive; G89.18 Other acute postprocedural pain; F32.9 Major depressive disorder, single episode, unspecified; G47.00 Insomnia, unspecified; N40.1 Benign prostatic hyperplasia with lower urinary tract symptoms; R33.8 Other retention of urine; N32.3 Diverticulum of bladder; L29.9 Pruritus, unspecified; K59.03 Drug induced constipation; T40.2X5A Adverse effect of other opioids, initial encounter; L65.9 Nonscarring hair loss, unspecified; N50.812 Left testicular pain; E73.9 Lactose intolerance, unspecified; M21.379 Foot drop, unspecified foot; Y84.6 Urinary catheterization as the cause of abnormal reaction of the patient, or of later complication, without mention of misadventure at the time of the procedure; Z93.3 Colostomy status; Z68.20 Body mass index [BMI] 20.0-20.9, adult; Z59.0 Homelessness; Z90.49 Acquired absence of other specified parts of digestive tract; Z20.828 Contact with and (suspected) exposure to other viral communicable diseases
CPT/HCPCS: G0104; J0131; Q9967

== ENCOUNTER 2020-06-07 15:06 | Emergency (ER) | payer SELFPAY ==
[~2020-06-07] VITALS: Ht 162.6 cm; Wt 70.0 kg
[~2020-06-07 15:06] MED LIST: BACTRIM DS1 TAB PO; DICYCLOMINE HCL10 MG PO; DOXAZOSIN1 MG PO; FINASTERIDE5 MG PO; LOPRESSOR25 M1 PO; PANTOPRAZOLE SO40 M1 PO; SYNTHROID25 MCG PO; TAMSULOSIN HCL0.4 MG PO; TRAMADOL HCL50 MG PO
[2020-06-07 16:55] VITALS: BP 144/68
== END 2020-06-07 16:55 | disposition home or self-care (01) | DRG 921 ==
LOC: ED 15:06
DX: T85.848A Pain due to other internal prosthetic devices, implants and grafts, initial encounter (principal); S00.212A Abrasion of left eyelid and periocular area, initial encounter; I10 Essential (primary) hypertension; W19.XXXA Unspecified fall, initial encounter; Y83.3 Surgical operation with formation of external stoma as the cause of abnormal reaction of the patient, or of later complication, without mention of misadventure at the time of the procedure

== ENCOUNTER 2020-06-29 14:30 | Emergency (ER) | payer SELFPAY ==
[~2020-06-29] VITALS: Ht 162.6 cm; Wt 54.5 kg
[2020-06-29 16:15] LABS: URINE BILIRUBIN - DIPSTICK NEGATIVE (NEGATIVE); URINE BLOOD DIPSTICK MODERATE (NEGATIVE); URINE COLOR YELLOW; URINE GLUCOSE - DIPSTICK NEGATIVE (NEGATIVE); URINE KETONE NEGATIVE (NEGATIVE); URINE NITRITE - DIPSTICK NEGATIVE (Negative); URINE PROTEIN - DIPSTICK TRACE mg/dL (NEG-TRACE); URINE UROBILINOGEN - DIPSTICK 0.2 E.U./dL (0.2)
[2020-06-29 16:20] LABS: URINE LEUK ESTERASE MODERATE (NEGATIVE)
[2020-06-29 16:32] LABS: URINE WBC 50-100 WBC/hpf (0-5)
[2020-06-29] MEDS ORDERED: CEPHALEXIN500 M1 PO (16:35)
[2020-06-29 18:00] VITALS: BP 154/73
== END 2020-06-29 18:00 | disposition home or self-care (01) | DRG 690 ==
LOC: ED 14:30
PROVIDERS: Family Medicine
DX: N39.0 Urinary tract infection, site not specified (principal); I10 Essential (primary) hypertension; F17.200 Nicotine dependence, unspecified, uncomplicated; B95.2 Enterococcus as the cause of diseases classified elsewhere; Z93.3 Colostomy status

== ENCOUNTER 2020-07-06 16:18 | Emergency (ER) | payer SELFPAY ==
[~2020-07-06] VITALS: Ht 162.6 cm; Wt 70.0 kg
[~2020-07-06 16:18] MED LIST changes: +CEPHALEXIN500 M1 PO
[2020-07-06] MEDS ORDERED: AMOXICILLIN500 MG PO (16:50)
[2020-07-06 17:09] LABS: HEMATOCRIT 34.8 % (39.0-50.0); HEMOGLOBIN 10.6 g/dl (14.0-18.0); IMMATURE GRANULOCYTES 0.1 % (0.0-5.0); MEAN CELL VOLUME 83.9 fL CALC (80.0-100.0); MEAN CORPUSCULAR HGB 25.5 pG CALC (26.0-32.0); MEAN CORPUSCULAR HGB CONC 30.5 g/dL CAL (32.0-36.0); NEUT# 2.53 thou/uL (1.82-7.42); RED BLOOD COUNT 4.15 mill/uL (4.70-6.10); RED CELL DISTRI WIDTH 13.9 % (11.5-15.5)
[2020-07-06 17:13] LABS: URINE BILIRUBIN - DIPSTICK NEGATIVE (NEGATIVE); URINE BLOOD DIPSTICK LARGE (NEGATIVE); URINE COLOR YELLOW; URINE GLUCOSE - DIPSTICK NEGATIVE (NEGATIVE); URINE KETONE NEGATIVE (NEGATIVE); URINE NITRITE - DIPSTICK NEGATIVE (Negative); URINE PROTEIN - DIPSTICK 100 mg/dL (NEG-TRACE); URINE SPECIFIC GRAVITY >=1.030; URINE UROBILINOGEN - DIPSTICK 0.2 E.U./dL (0.2)
[2020-07-06 17:39] LABS: URINE LEUK ESTERASE SMALL (NEGATIVE)
[2020-07-06 17:41] LABS: URINE WBC >100 WBC/hpf (0-5)
[2020-07-06 17:45] LABS: ALBUMIN 3.2 g/dL (3.2-5.0); ALKALINE PHOSPHATASE 115 u/l (38-126); ANION GAP 11 (6-22 (CALC)); BILIRUBIN, TOTAL 0.2 mg/dL (0.0-1.4); BUN 15 mg/dL (9-20); BUN/CREATININE RATIO 15 (12-20 (CALC)); CARBON DIOXIDE 23 mmol/l (22-30); CHLORIDE 107 mmol/l (95-108); GFR > 60 ML/MIN (>=60 (CALC)); GFR FOR AFR.AMER. > 60 ML/MIN (>=60 (CALC)); POTASSIUM 3.5 mmol/l (3.5-5.1); SGOT/AST 26 u/l (17-59); SODIUM 138 mmol/l (137-146); TOTAL PROTEIN 6.8 g/dL (6.3-8.2)
[2020-07-06] MEDS ORDERED: Levaquin PO (19:47)
[2020-07-06] MEDS ORDERED: IBUPROFEN600 MG PO (19:48)
[2020-07-06 20:27] VITALS: BP 172/79
== END 2020-07-06 20:57 | disposition home or self-care (01) | DRG 728 ==
LOC: ED 16:18
PROVIDERS: Student in an Organized Health Care Education/Training Program
DX: N45.3 Epididymo-orchitis (principal); I10 Essential (primary) hypertension; F17.200 Nicotine dependence, unspecified, uncomplicated; Z93.3 Colostomy status

== ENCOUNTER 2020-07-17 09:04 | Emergency (ER) | payer SELFPAY ==
[~2020-07-17] VITALS: Ht 162.6 cm; Wt 70.0 kg
[~2020-07-17 09:04] MED LIST changes: +AMOXICILLIN500 MG PO; +IBUPROFEN600 MG PO; +Levaquin PO
[2020-07-17 10:17] LABS: HEMATOCRIT 32.6 % (39.0-50.0); IMMATURE GRANULOCYTES 0.2 % (0.0-5.0); MEAN CELL VOLUME 83.6 fL CALC (80.0-100.0); MEAN CORPUSCULAR HGB 25.6 pG CALC (26.0-32.0); MEAN CORPUSCULAR HGB CONC 30.7 g/dL CAL (32.0-36.0); NEUT# 2.48 thou/uL (1.82-7.42); RED BLOOD COUNT 3.9 mill/uL (4.70-6.10); RED CELL DISTRI WIDTH 14.6 % (11.5-15.5)
[2020-07-17 10:32] LABS: ALKALINE PHOSPHATASE 109 u/l (38-126); AMYLASE 52 u/l (30-110); BILIRUBIN, TOTAL 0.2 mg/dL (0.0-1.4); BUN 21 mg/dL (8-23); BUN/CREATININE RATIO 19 (12-20 (CALC)); CHLORIDE 105 mmol/l (95-108); CREATININE 1.1 mg/dL (0.7-1.3); GFR > 60 ML/MIN (>=60 (CALC)); GFR FOR AFR.AMER. > 60 ML/MIN (>=60 (CALC)); LIPASE 69 u/l (23-300); POTASSIUM 3.6 mmol/l (3.5-5.1); SGOT/AST 20 u/l (19-48); SODIUM 139 mmol/l (137-146); TOTAL PROTEIN 6.3 g/dL (6.3-8.2)
[2020-07-17 10:33] LABS: ANION GAP 9 (6-22 (CALC)); CARBON DIOXIDE 29 mmol/l (22-30)
[2020-07-17 10:39] LABS: URINE BILIRUBIN - DIPSTICK NEGATIVE (NEGATIVE); URINE BLOOD DIPSTICK MODERATE (NEGATIVE); URINE COLOR YELLOW; URINE GLUCOSE - DIPSTICK NEGATIVE (NEGATIVE); URINE KETONE NEGATIVE (NEGATIVE); URINE NITRITE - DIPSTICK NEGATIVE (Negative); URINE PROTEIN - DIPSTICK 30 mg/dL (NEG-TRACE); URINE SPECIFIC GRAVITY 1.025; URINE UROBILINOGEN - DIPSTICK 0.2 E.U./dL (0.2)
[2020-07-17 10:45] LABS: URINE LEUK ESTERASE SMALL (NEGATIVE)
[2020-07-17 10:46] LABS: URINE BACTERIA FEW hpf; URINE EPITHELIAL CELLS FEW EPI/hpf (0-FEW)
[2020-07-17] MEDS ORDERED: ULTRAM50 M1 PO (11:30)
[2020-07-17 13:05] VITALS: BP 185/88
[2020-07-17] MEDS ORDERED: KEFLEX500 MG PO (23:27)
== END 2020-07-17 13:05 | disposition home or self-care (01) | DRG 690 ==
LOC: ED 09:04
PROVIDERS: Emergency Medicine
DX: N39.0 Urinary tract infection, site not specified (principal); I10 Essential (primary) hypertension; Z93.3 Colostomy status
CPT/HCPCS: Q9967

== ENCOUNTER 2021-01-15 14:16 | Emergency (ER) | payer SELFPAY ==
[~2021-01-15] VITALS: Ht 162.6 cm; Wt 70.0 kg
[~2021-01-15 14:16] MED LIST changes: +KEFLEX500 MG PO; +ULTRAM50 M1 PO
[2021-01-15 15:15] LABS: IMMATURE GRANULOCYTES 0.1 % (0.0-5.0); MEAN CELL VOLUME 86.3 fL CALC (80.0-100.0); MEAN CORPUSCULAR HGB CONC 31.3 g/dL CAL (32.0-36.0); NEUT# 3.69 thou/uL (1.82-7.42); RED BLOOD COUNT 4.66 mill/uL (4.70-6.10); RED CELL DISTRI WIDTH 14.8 % (11.5-15.5)
[2021-01-15 15:16] LABS: HEMATOCRIT 40.2 % (39.0-50.0); HEMOGLOBIN 12.6 g/dl (14.0-18.0)
[2021-01-15 15:27] LABS: BUN 32 mg/dL (8-23); BUN/CREATININE RATIO 30 (12-20 (CALC)); CARBON DIOXIDE 26 mmol/l (22-30); CHLORIDE 102 mmol/l (95-108); CREATININE 1.1 mg/dL (0.7-1.3); ETHYL ALCOHOL 0 mg/dl (0-30); GFR > 60 ML/MIN (>=60 (CALC)); GFR FOR AFR.AMER. > 60 ML/MIN (>=60 (CALC)); SODIUM 137 mmol/l (137-146)
[2021-01-15 15:29] LABS: ALBUMIN 4.3 g/dL (3.2-5.0); ALKALINE PHOSPHATASE 189 u/l (38-126); ANION GAP 13 (6-22 (CALC)); BILIRUBIN, TOTAL 0.6 mg/dL (0.0-1.4); POTASSIUM 4.4 mmol/l (3.5-5.1); SGOT/AST 56 u/l (19-48); TOTAL PROTEIN 8.7 g/dL (6.3-8.2)
[2021-01-15 18:35] VITALS: BP 150/80
== END 2021-01-15 18:30 | DRG 880 ==
LOC: ED 14:16
PROVIDERS: Family Medicine
DX: R45.851 Suicidal ideations (principal); I10 Essential (primary) hypertension; F32.9 Major depressive disorder, single episode, unspecified; F17.200 Nicotine dependence, unspecified, uncomplicated